=== PATIENT | male | born 1940 | race Caucasian/White ===

== ENCOUNTER 2018-10-19 12:30 | Emergency (ER) | payer MEDICARE ==
[2018-10-19] MEDS ORDERED: PREDNISONE 20 MG TABLET ONE (14:12)
[2018-10-19] MEDS ORDERED: IPRATROPIUM/ALBUTEROL SULFATE 3 ML SOLUTION IH ONE (14:16)
== END 2018-10-19 15:08 | disposition home or self-care (01) ==
LOC: EDH 12:30
DX: J20.9 Acute bronchitis, unspecified (principal); Z87.891 Personal history of nicotine dependence
CPT/HCPCS: 71045; 87804; 93005; 94640